=== PATIENT | female | born 1950 | race Caucasian/White ===

== ENCOUNTER 2018-03-30 06:45 | Emergency (ER) | payer MEDICARE, BC ==
[~2018-03-30] VITALS: Ht 162.6 cm; Wt 100.0 kg
[~2018-03-30 06:45] MED LIST: ALLO100T PO; ASPI-529 PO; CANA300T PO; GARL1TAB2 PO; HYDR12.5 PO; IBUP200C74 PO; LACT1CAP65 PO; LINA5TAB4 PO; LISI40TA4 PO; LORA-512 PO; METF500T PO; RANI300C PO; VITA1CAP PO; VITAMIN D PO
[2018-03-30] MEDS ORDERED: acetaminophen 325mg tablet PO STA (06:55)
[2018-03-30] MEDS ORDERED: normal saline 1000ML IV soln IV ONE (06:55)
[2018-03-30] MEDS ORDERED: normal saline 1000ml 1,000 ML IV ONE (07:05)
[2018-03-30] MEDS ORDERED: pantoprazole 40 MG vial IV ONE (07:05)
[2018-03-30 07:17] LABS: BASOPHILS % (AUTO) 0.2 % (0-1); EOSINOPHILS # (AUTO) 0.1 X10'3 (0-0.9); EOSINOPHILS % (AUTO) 0.9 % (0-6); HEMATOCRIT 39.5 % (35.0-45.0); HEMOGLOBIN 13.3 g/dl (12.0-16.0); LYMPHOCYTES % (AUTO) 6.6 % (21-51); MEAN CORPUSCULAR HEMOGLOBIN 28.2 PG (27.0-31.0); MEAN CORPUSCULAR HGB CONC 33.7 % (33.0-36.5); MEAN CORPUSCULAR VOLUME 83.8 FL (78-98); MEAN PLATELET VOLUME 8.1 FL (7.4-10.4); MONOCYTES # (AUTO) 0.9 X10'3 (0-0.9); MONOCYTES % (AUTO) 5.5 % (2-12); NEUTROPHILS # (AUTO) 13.5 X10'3 (1.8-7.7); NEUTROPHILS % (AUTO) 86.8 % (42-75); PLATELET COUNT 231 X10'3 (140-440); RED BLOOD COUNT 4.71 X10'6 (4.20-5.60); RED CELL DISTRIBUTION WIDTH 15.3 % (11.5-14.5); WHITE BLOOD COUNT 15.6 X10'3 (4.5-11.0)
[2018-03-30 07:26] LABS: PARTIAL THROMBOPLASTIN TIME 28 SECONDS (22-32); PROTHROMBIN TIME 10.3 SECONDS (9.0-12.0)
[2018-03-30 07:31] LABS: ALANINE AMINOTRANSFERASE 24 U/L (12-78); ALBUMIN 3.8 G/DL (3.4-5.0); ALBUMIN/GLOBULIN RATIO 0.9 (1.1-1.5); ALKALINE PHOSPHATASE 105 IU/L (46-116); ANION GAP 15 (8-16); ASPARTATE AMINO TRANSFERASE 20 U/L (10-37); BILIRUBIN,TOTAL 0.5 MG/DL (0.1-1.0); BLOOD UREA NITROGEN 26 MG/DL (7-18); BUN/CREATININE RATIO 17.7 (6.6-38.0); CALCIUM 10.3 MG/DL (8.5-10.1); CHLORIDE 100 MMOL/L (99-107); CREATININE 1.47 MG/DL (0.40-0.90); GLUCOSE 219 MG/DL (70-104); MAGNESIUM 1.8 MG/DL (1.5-2.4); POTASSIUM 3.7 MMOL/L (3.5-5.1); SODIUM 139 MMOL/L (135-145); TOTAL CARBON DIOXIDE 24.4 MMOL/L (24-32); TOTAL PROTEIN 8.2 G/DL (6.4-8.2); eGFR 35 ML/MIN
[2018-03-30 07:34] LABS: ANISOCYTOSIS 1+; MICROCYTOSIS 1+; PLATELET ESTIMATE NORMAL; TOTAL CELLS COUNTED 100
[2018-03-30 07:35] LABS: LARGE PLATELETS FEW
[2018-03-30 07:37] LABS: CLARITY,URINE SLIGHTLY CLOUDY (Clear); COLOR,URINE YELLOW (Yellow); GLUCOSE, URINE >=1000 mg/dl (Neg); KETONES,URINE TRACE mg/dl (Neg); LEUKOCYTE ESTERASE ,URINE NEGATIVE (Neg); NITRITES, URINE POSITIVE (Neg); OCCULT BLOOD,URINE MODERATE (Neg); PH,URINE 5.5 (4.8-8.0); PROTEIN,URINE TRACE mg/dl (Neg); UROBILINOGEN,URINE 0.2 E.U/dL (0.2-1.0)
[2018-03-30 07:42] LABS: UA COLLECTION TYPE CLN CATCH MIDSTREAM
[2018-03-30 07:43] LABS: BACTERIA,URINE 1+ /HPF (Neg); MUCUS STRANDS NONE SEEN /LPF (Neg); RBC,URINE 0-2 /HPF (0-2); SQUAMOUS EPITHELIAL CELL,UR FEW /LPF (FEW)
[2018-03-30] MEDS ORDERED: CefTRIAXone 2gm/D5W 50ml 50 ML IV ONE (07:50)
[2018-03-30 08:49] VITALS: BP 101/68
[2018-03-30] MEDS ORDERED: ONDA8TAB9 PO (09:08)
[2018-03-30] MEDS ORDERED: CIPR-230 PO (09:08)
== END 2018-03-30 10:01 | disposition home or self-care (01) ==
LOC: ER 06:45
DX: N39.0 Urinary tract infection, site not specified (principal); R11.2 Nausea with vomiting, unspecified; Z88.0 Allergy status to penicillin; Z88.2 Allergy status to sulfonamides; Z79.899 Other long term (current) drug therapy
CPT/HCPCS: 36415; 71045; 80053; 81001; 83605; 83735; 84145; 85025; 85610; 85730; 87040; 87077; 87088; 87186; 93005; 96361; 96365; 96375; 99285; C9113; J0696; J7030

== ENCOUNTER 2025-07-07 12:02 | Emergency (ER) | payer MEDICARE, BC ==
[~2025-07-07] VITALS: Ht 162.6 cm; Wt 90.9 kg
[~2025-07-07 12:02] MED LIST changes: +IBUP-2417 PO; -IBUP200C74 PO; +LISI40TA20 PO; -LISI40TA4 PO; +ONDA8TAB9 PO
[2025-07-07 12:12] VITALS: TEMP 97.8
[2025-07-07 12:47] LABS: MEAN PLATELET VOLUME 7.8 FL (7.4-10.4); RED CELL DISTRIBUTION WIDTH 15.2 % (11.5-14.5)
[2025-07-07 12:54] LABS: CREATININE 1.49 MG/DL (0.40-0.90); TOTAL CARBON DIOXIDE 25.7 MMOL/L (24-32); eCRCL 28 ML/MIN; eGFR 34 ML/MIN
[2025-07-07 13:15] VITALS: BP 118/70; PULSE 71; RESP 13; O2SAT 96
--- NOTE | 2025-07-07 13:25 | Physician Documentation ---
History of Present Illness ~ Chief Complaint: Leg Pain Stated Complaint: LEG PAIN Time Seen by MD: 12:19 Primary Medical Doctor: NATE GUERRERO Mode of Arrival: Ambulatory Tetanus witin 5 years: No Medication Reconciliation Allergies: Coded Allergies: Penicillins (Verified Allergy, Intermediate, RASH, 07/07/25) Sulfa (Sulfonamide Antibiotics) (Verified Allergy, Intermediate, RASH, 07/07/25) Scheduled Allopurinol* (Allopurinol*), 150 MG PO DAILY, (Reported) Aspirin (Baby Aspirin), 1 TAB PO DAILY, (Reported) Canagliflozin (Invokana), 1 TAB PO DAILY, (Reported) Garlic (Garlic), 1 TAB PO DAILY, (Reported) Hydrochlorothiazide (Hydrochlorothiazide), 1 CAP PO DAILY, (Reported) Ibuprofen (Ibuprofen), 1 TAB PO 6XD, (Reported) Lactobacillus Acidophilus (Probiotic), 1 CAP PO DAILY, (Reported) Linagliptin (Tradjenta), 1 TAB PO DAILY, (Reported) Lisinopril* (Lisinopril*), 1 TAB PO DAILY, (Reported) Loratadine* (Alavert*), 1 TAB PO DAILY, (Reported) Metformin Hcl* (Glucophage*), 1 TAB PO QID, (Reported) Ranitidine HCl (Ranitidine HCl), 1 CAP PO DAILY, (Reported) Vitamin B Complex (Vitamin B Complex), 1 CAP PO DAILY, (Reported) [Vitamin D], 1 TAB PO DAILY, (Reported) Scheduled PRN Ondansetron (Zofran Odt), 8 MG PO QID PRN for nausea/vomiting Past Medical History Past Medical History: Kidney Stones, UTI Past Surgical History: noncontributory Alcohol Use: Occasionally Drug Use: none Lives with: Spouse Lives In: Home Occupation: retired Physical Exam Vital Signs: Temperature: 97.8, Heart Rate: 71, Respiratory Rate: 13, BP: 118/ 70, Pulse Oximetry: 96, Weight: 90.910 Progress Progress Note 1334: 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 Results/Orders Results/Orders Orders - GHASSAN MILLS NP Vl Venous (07/07/25 12:20) Completed Orders - GHASSAN MILLS NP Cbc/Diff (07/07/25 12:20) BMP (07/07/25 12:20) MG (07/07/25 12:20) Vl Venous (07/07/25 12:20) Vital Signs 07/07/25 07/07/25 07/07/25 12:12 13:09 13:15 Temp 97.8 Pulse 74 71 Resp 18 14 13 B/P (MAP) 138/66 118/70 (86) Pulse Ox 98 96 Laboratory Tests Test 07/07/25 12:33 White Blood Count 8.1 Red Blood Count 4.86 Hemoglobin 13.5 Hematocrit 40.2 Mean Corpuscular Volume 82.7 Mean Corpuscular Hemoglobin 27.7 Mean Corpuscular Hemoglobin Concent 33.5 Red Cell Distribution Width 15.2 H Platelet Count 266 Mean Platelet Volume 7.8 Neutrophils (%) (Auto) 50.2 Lymphocytes (%) (Auto) 39.0 Monocytes (%) (Auto) 6.4 Eosinophils (%) (Auto) 3.5 Basophils (%) (Auto) 0.9 Neutrophils # (Auto) 4.0 Lymphocytes # (Auto) 3.1 Monocytes # (Auto) 0.5 Eosinophils # (Auto) 0.3 Basophils # (Auto) 0.1 CBC Comment Sodium Level 140 Potassium Level 4.1 Chloride Level 106 Carbon Dioxide Level 25.7 Anion Gap 8 Blood Urea Nitrogen 31 H Creatinine 1.49 H Estimated GFR/1.73 m2 34 BUN/Creatinine Ratio 20.8 H Glucose Level 93 Calcium Level 9.1 Magnesium Level 2.0 Albumin 4.0 Chemistry Comments Departure Time of Disposition: 14:12 Disposition: 01 HOME / SELF CARE / HOMELESS Impression: Primary Impression: Cramp in lower leg Additional Impression: CKD (chronic kidney disease) Condition: Stable Discharge Instructions: Chronic Kidney Disease, Adult, Muscle Strain, [id number] Additional Instructions: No deep vein thrombosis (blood clot). Gentle stretching of lower extremities. Try muscle rub/icy hot to alleviate cramp. Talk to your primary care about your chronic kidney disease. Avoid NSAIDs. Return if worse. Referrals: NO PRIMARY CARE PROVIDER (PCP) Education Educated: Patient Educated regarding: diagnosis, treatment, prognosis, need for follow up Signature Scribe Signature: x Attestation: The note accurately reflects work and decisions made by me.Ghassan Ulloa NP 07/07/25 14:15 GHASSAN MILLS NP Jul 07, 2025 13:24
--- NOTE | 2025-07-07 13:53 | VASCULAR REPORT ---
Technique: Real-time ultrasound imaging, with color Doppler and compression of the right common femo ral vein, femoral vein, greater saphenous vein, and popliteal vein. Indication: Calf pain Comparison: None Findings: There is normal compressibility and flow augmentation in all of the imaged deep veins. There are no f illing defects. Impression: No evidence of DVT in the right lower extremity
== END 2025-07-07 14:35 | disposition home or self-care (01) ==
LOC: ER 12:03
DX: R25.2 Cramp and spasm (principal); N18.9 Chronic kidney disease, unspecified; Z87.440 Personal history of urinary (tract) infections; Z88.0 Allergy status to penicillin; Z88.2 Allergy status to sulfonamides; Z88.8 Allergy status to other drugs, medicaments and biological substances
CPT/HCPCS: 36415; 80048; 83735; 85025; 93971; 99284